=== PATIENT | female | born 1975 | race Caucasian/White ===

== ENCOUNTER 2023-05-04 20:05 | Emergency (ER) | payer MEDICAID, SELFPAY ==
[2023-05-04] VITALS (9 sets, daily range): BP systolic 86–164; BP diastolic 41–83; PULSE 80–130; RESP 14–25; TEMP 37.4; O2SAT 94–97; BMI 33.3
--- NOTE | ~2023-05-04 | CT_ITS ---
EXAMINATION: CT HEAD WITHOUT CONTRAST CLINICAL INFORMATION: Altered mental status. COMPARISON: None available. TECHNIQUE: Contiguous axial imaging was performed from the skull base to vertex without intravenous administration of contrast. This CT examination was performed using dose optimization techniques as appropriate, variously including the following: *Automated exposure control *Adjustment of mA and/or kV according to patient size (this includes techniques or standardized protocols for targeted exams where dose is matched to indication/reason for exam; i.e. extremities or head) *Use of iterative reconstruction technique DLP: 648.5 mGy-cm FINDINGS: The lateral, third and fourth ventricles are normally outlined. The cortical sulci and basal cisterns are normally outlined as well. There is no acute territorial defect, hemorrhage or midline shift. The extra-axial spaces are unremarkable. Calvarium: Intact. Maxillofacial sinuses and mastoids: Clear as visualized. CT/CT head/brain wo IV con IMPRESSION: No acute intracranial pathology.
--- NOTE | ~2023-05-04 | CT_ITS ---
EXAMINATION: CT ABDOMEN AND PELVIS WITHOUT CONTRAST CLINICAL INFORMATION: Abdominal pain. COMPARISON: None available. TECHNIQUE: Multidetector volumetric imaging was performed from the superior aspect of the liver through the pubic symphysis. Sagittal and coronal reformatted images were obtained on the technologist's workstation. This CT examination was performed using dose optimization techniques as appropriate, variously including the following: *Automated exposure control *Adjustment of mA and/or kV according to patient size (this includes techniques or standardized protocols for targeted exams where dose is matched to indication/reason for exam; i.e. extremities or head) *Use of iterative reconstruction technique DLP: 897.74 mGy-cm FINDINGS: LUNG BASES: The visualized lung bases are unremarkable. LIVER, GALLBLADDER, AND BILIARY TREE: The liver is normal in size, shape, and attenuation. No focal hepatic lesion or biliary ductal dilatation is present. The gallbladder is unremarkable with no evidence of radiopaque gallstones, gallbladder wall thickening, or obvious pericholecystic inflammatory changes. PANCREAS: Unremarkable. SPLEEN: Unremarkable. ADRENAL GLANDS: Unremarkable. KIDNEYS AND URETERS: The kidneys are normal in size, shape, and attenuation. No hydronephrosis, hydroureter, or calculi seen. No perinephric stranding. BLADDER: Unremarkable. GASTROINTESTINAL TRACT: There is retained stool throughout the colon. The appendix is not seen as a separate structure. ABDOMINAL WALL: No significant hernia is appreciated. LYMPH NODES: Normal. VASCULAR: Unremarkable. PELVIC VISCERA: Unremarkable. OSSEOUS STRUCTURES: There is diffuse pena-[id number]-[id number] thoracolumbar disc degenerative change with mild curvature of the lumbar spine convex to the left. There is grade 1 anterolisthesis L4 over L5. There is also diffuse [id number] thoracolumbar facet degenerative change CT/CT abdomen pelvis wo IV con IMPRESSION: Retained stool throughout the colon. The appendix is not seen. Diffuse mild to moderate thoracolumbar disc and facet degenerative change with mild curvature of the lumbar spine convex to the left and grade 1 anterolisthesis L4 over L5. No other significant abnormality seen. Fleischner guidelines were followed.
--- NOTE | ~2023-05-04 | XR_ITS ---
EXAMINATION: PORTABLE CHEST 1 VIEW CLINICAL INFORMATION: aspiration. COMPARISON: No recent pertinent prior studies are available for comparison. TECHNIQUE: Portable frontal view of the chest was obtained. FINDINGS: Patient is rotated to the right. Lungs are hypoexpanded. Minimal blunting of the right costophrenic angle could represent tiny effusion difficult to define with this rotation. No superimposed focal infiltrate, edema, or pneumothorax. Cardiac and mediastinal silhouettes within normal limits for size. No acute bony abnormality. Degenerative changes in the spine and shoulders. Cervical spine hardware noted. XR/XR chest 1V IMPRESSION: Rotated. Hypoexpanded with chronic appearing changes but no acute process seen otherwise.
[2023-05-04] MEDS: LORazepam 2 MG/ML VIAL IM (20:17)
[2023-05-04] MEDS: OLANZapine 10 MG VIAL 5 MG IM (20:17)
[2023-05-04] MEDS: diphenhydrAMINE HCL 50 MG/ML VIAL IM (20:17)
--- NOTE | 2023-05-04 20:36 | PC.NURSE ---
pt biba from home. per ems pt sister stating pt was having mental breakdown and needed hospitalization PD at scene and noted pt to have bottle in wine in hand. pt uncooperative and not answering questions per ems. upon arrival to ED, pt screaming and violent, pt refusing vitals. provider at bedside, pt reports taking 4 gabapentin. pt attempting to hit head against stretcher. security at bedside. Pt given IM medications at 2017, per provider order.
--- NOTE | 2023-05-04 21:05 | ECG_ITS ---
Test Reason : GENERAL MEDICAL Blood Pressure : / mmHG Vent. Rate : 088 BPM Atrial Rate : 088 BPM P-R Int : 152 ms QRS Dur : 076 ms QT Int : 398 ms P-R-T Axes : 062 056 048 degrees QTc Int : 481 ms Normal sinus rhythm Possible Left atrial enlargement Septal infarct , age undetermined Abnormal ECG No previous ECGs available Referred By: Aleta Barrera Electronically Signed By:SUREKHA BORJA
--- NOTE | 2023-05-04 21:05 | ED.PSYCH ---
HPI - Psych General Chief Complaint: Behavioral Concerns Stated Complaint: CRISIS UNCOOPERATIVE Time Seen by Provider: 05/04/23 20:59 Source: patient Mode of arrival: EMS Limitations: other (uncooperative) History of Present Illness HPI Narrative: 48 yo female from home who is intoxicated and will not answer my questions right now but seems to have had issue at her house and sister called EMS. she was agitated on arrival and received IM medications by previous provider. On my exam she is on the monitor but very sleepy and I cannot interview her appropriately. MD complaint: anxiety, alcohol abuse and other Onset (ago): unknown Duration: other History of same: Yes Relieving factors: none Exacerbating factors: none Context: other Associated psychiatric symptoms: other Associated symptoms: denies other symptoms Treatments prior to arrival: chemical restraints Related Data Allergies Allergy/AdvReac Type Severity Reaction Status Date / Time meperidine [From DEMEROL] Allergy Unknown HYPOTENSION Unverified 02/16/20 18:41 - PASSED OUT oxycodone [From OXYCONTIN] Allergy Unknown OUT OF Unverified 02/16/20 18:41 BODY EXPERIENCE - NEVER WANTS TO TAKE AGAIN penicillin V Allergy Unknown anaphylaxis Verified 01/19/14 00:00 Penicillins [PENICILLINS] Allergy Unknown ANAPHYLAXIS Unverified 02/16/20 18:41 Review of Systems Review of Systems: ROS unable to be obtained due to ETOH and medications PMFSH Past Medical History Source: unable to obtain (due to ETOH use and chemical restraints) Social History Social History (Updated 05/04/23 @ 21:38 by Aleta Barrera DO) Patient Tobacco Use Status: Tobacco use Unknown Advance Directives: No Advance Directives Information Provided: No Physical Exam Vital Signs: Vital Signs: Last Vital Signs Temp 99.4 F 05/04/23 23:41 Pulse 80 05/04/23 23:41 Resp 14 05/04/23 23:41 BP 108/53 L 05/04/23 21:51 Pulse Ox 97 05/04/23 23:41 O2 Del Method Room Air 05/04/23 23:41 BMI result Body Mass Index 33.3 Appearance: Somnolent responds to tactile stimuli. will not answer questions, rolls over. No acute distress. Eyes: Pupils equal, round and reactive to light. ENT: Pharynx normal. Atraumatic Neck: Normal inspection. Neck supple. CVS: Normal heart rate and rhythm. Pulses normal. Respiratory: No respiratory distress. Breath sounds normal. Abdomen: Soft and nontender. Skin: Skin warm and dry. Normal skin color. Normal skin turgor. Extremities: No lower extremity edema. No calf ttp Neuro: withdraws from tactile stimuli No motor deficit. No sensory deficit. Course Course Course Narrative: woke up at one time then couldn't urinate and had to straight cath Physician observation started at 433am Patient placed in physician observation because the patient needed more time for the CARE team to assess the need for psych admission. At the time observation was started the patient's vitals were stable, patient is somnolent and intermittently agitated, Neuro: nonfocal, CV RRR, Lungs clear Reevaluation(s) Reevaluation #1: WBC count could be acute phase reactant I have no source in abdomen, lungs or urine right now. she has been afebrile, could be post injection as well. Medications Administered Discontinued Medications Generic Name Dose Route Start Last Admin Trade Name Freq PRN Reason Stop Dose Admin Diphenhydramine HCl 50 mg 05/04/23 20:13 05/04/23 20:17 Diphenhydramine Hcl 50 Mg/Ml Vial IM 05/04/23 20:14 50 mg ONCE ONE Administration Lorazepam 2 mg 05/04/23 20:13 05/04/23 20:17 Lorazepam 2 Mg/Ml Vial IM 05/04/23 20:14 2 mg ONCE ONE Administration Olanzapine 5 mg 05/04/23 20:13 05/04/23 20:17 Olanzapine 10 Mg Vial IM 05/04/23 20:14 5 mg ONCE ONE Administration Medical Decision Making Medical Decision Making [facility] Narrative: 48 yo female with PMH of ETOH use and came in agitated needing chemical restraints at this time will reassess when more awake - will order labs and CARE team consult in AM. I cannot interview the patient as she was chemically restrained before I saw her Differential Diagnosis Differential Diagnoses: The differential diagnosis associated with the presentation includes substance abuse vs mental health issue Admission/Observation Consideration of admission/observation: Escalation of care including admission/observation considered observe until more appropriate CPK mildly elevated Consult Healthcare Provider Management of the patient was discussed with: Behavioral Health Provider Lab Data [facility] Lab Attestation statement: I reviewed the patient's lab results. 05/04/23 21:59 05/04/23 21:59 Labs: Lab Results 05/04/23 05/05/23 Range/Units 21:59 00:57 WBC 17.2 H (4.8-10.8) X10*3/uL RBC 3.96 L (4.20-5.50) X10*6/uL Hgb 11.6 L (12.0-16.0) g/dl Hct 36.0 L (37.0-47.0) % MCV 90.9 (80.0-98.0) fL MCH 29.3 (27.0-33.0) pg MCHC 32.2 (31.0-35.0) g/dl RDW 13.0 (11.0-16.0) % Plt Count 376 (160-400) X10*3/uL MPV 9.3 L (9.4-12.3) fL Immature Gran % (Auto) 0.3 (0.0-0.4) % Neut % (Auto) 78.3 H (45-73) % Lymph % (Auto) 13.9 L (20-40) % [place] % (Auto) 6.5 (2-11) % Eos % (Auto) 0.4 (0-4) % Baso % (Auto) 0.6 (0-2) % Lymph # (Auto) 2.4 (1.2-4.9) X10*3/uL [place] # (Auto) 1.1 (0.1-1.2) X10*3/uL Eos # (Auto) 0.1 (0.0-0.4) X10*3/uL Baso # (Auto) 0.1 (0.0-0.2) X10*3/uL Abs Immat Gran (auto) 0.05 H (0.00-0.03) X10*3/uL Absolute Neuts (auto) 13.5 H (2.0-8.3) x10*3/uL Absolute Nucleated RBC 0.000 (0.0-0.012) X10*3/uL Nucleated RBC % (auto) 0.0 (0.0-0.2) /100WBC Sodium 145 (135-145) mmol/L Potassium 4.0 (3.3-5.1) mmol/L Chloride 109 H (96-108) mmol/L Carbon Dioxide 20 L (22-29) mmol/L Anion Gap 20 (12-20) BUN 16 (9-16) mg/dL Creatinine 0.92 (0.5-1.4) mg/dL Estim Creat Clear Calc 81.3 Estimated GFR > 60 Random Glucose 69 (60-115) mg/dL Calcium 9.3 (8.4-10.2) mg/dL Magnesium 2.1 (1.6-2.6) mg/dL Total Bilirubin 0.4 (0.0-1.0) mg/dL Direct Bilirubin 0.2 (0.0-0.5) mg/dL AST 32 H (5-31) U/L ALT 20 (0-31) U/L Alkaline Phosphatase 61 (39-117) U/L Total Creatine Kinase 611 H (26-140) U/L Total Protein 6.2 L (6.5-8.0) g/dL Albumin 3.9 (3.5-5.0) g/dL Urine Color Yellow Urine Appearance Clear Urine pH 6.0 (5.0-9.0) Ur Specific [place] 1.020 (1.005-1.025) Urine Protein Negative (Neg-Trace) mg/dL Urine Glucose (UA) Negative (Negative) mg/dL Urine Ketones 15 (Negative) mg/dL Urine Blood Negative (Negative) Urine Nitrite Negative (Negative) Ur Leukocyte Esterase Small (1+) H (Negative) Urine RBC 0-2 (0-2) /HPF Urine WBC 0-5 (0-5) /HPF Ur Squamous Epith Cells 3-5 (0-2) /HPF Urine Bacteria 1+ (None Seen) Hyaline Casts 0-2 (0-2) /LPF Urine Opiates Screen Not Detected (Not Detect) Urine Fentanyl Screen Not Detected (Not Detect) Ur Barbiturates Screen Not Detected (Not Detect) Ur Phencyclidine Scrn Not Detected (Not Detect) Ur Amphetamines Screen POSITIVE H (Not Detect) U Benzodiazepines Scrn Not Detected (Not Detect) Urine Cocaine Screen Not Detected (Not Detect) U Marijuana (THC) Screen Not Detected (Not Detect) Ethyl Alcohol 24 mg/dL COVID-19 (MERY) Negative (Negative) COVID-19 Clin Com See Note Independent Interpretation I performed an independent interpretation of an: EKG, Plain X-Ray and CT Scan (no ICH, moderate constipation) Interpretation: Rate: 88 Rhythm: NSR [place]: normal Normal P waves. Normal [place]. Normal QRS complex. ST T wave : inverted T waves V1-V2, no NADIR qTC: normal prior studies: no priors The study has been interpreted contemporaneously by me. . Radiology Impression Discussion of test interpretation with radiology: I have reviewed the radiologist's reading. Independent Historian Clinical information obtained from an independent historian. History obtained from or confirmed by: Other Discharge Plan Discharge Clinical Impression: Agitation Constipation Qualifiers: Constipation type: unspecified constipation type Qualified Code(s): K59.00 - Constipation, unspecified Patient Disposition: Still a Patient
--- NOTE | 2023-05-04 21:17 | PC.NURSE ---
one our of chemical restraints complete, pt vss. pt sleeping, respirations even and unlabored. pt cooperative at this time. provider aware.
[2023-05-04 22:03] LABS: MANUAL DIFF FLAG NO
[2023-05-04 22:04] LABS: Basophils Absolute Auto 0.1 X10*3/uL (0.0-0.2); Basophils Percent Auto 0.6 % (0-2); Eosinophils Absolute Auto 0.1 X10*3/uL (0.0-0.4); Eosinophils Percent Auto 0.4 % (0-4); Hemoglobin 11.6 g/dl (12.0-16.0); Imm Gran Abs Auto 0.05 X10*3/uL (0.00-0.03); Imm Gran Pct Auto 0.3 % (0.0-0.4); Lymphocytes Absolute Auto 2.4 X10*3/uL (1.2-4.9); Lymphocytes Percent Auto 13.9 % (20-40); Mean Corpuscular HGB Conc 32.2 g/dl (31.0-35.0); Mean Corpuscular Hemoglobin 29.3 pg (27.0-33.0); Mean Corpuscular Volume 90.9 fL (80.0-98.0); Mean Platelet Volume 9.3 fL (9.4-12.3); Monocytes Absolute Auto 1.1 X10*3/uL (0.1-1.2); Monocytes Percent Auto 6.5 % (2-11); Neutrophils Absolute Auto 13.5 x10*3/uL (2.0-8.3); Neutrophils Percent Auto 78.3 % (45-73); Platelet Count 376 X10*3/uL (160-400); Red Blood Count 3.96 X10*6/uL (4.20-5.50); White Blood Count 17.2 X10*3/uL (4.8-10.8)
[2023-05-04 22:23] LABS: Alanine Aminotransferase 20 U/L (0-31); Albumin Level 3.9 g/dL (3.5-5.0); Alkaline Phosphatase 61 U/L (39-117); Anion Gap 20 (12-20); Aspartate Amino Transferase 32 U/L (5-31); Bilirubin Direct 0.2 mg/dL (0.0-0.5); Bilirubin Total 0.4 mg/dL (0.0-1.0); Blood Urea Nitrogen 16 mg/dL (9-16); Calcium 9.3 mg/dL (8.4-10.2); Carbon Dioxide 20 mmol/L (22-29); Chloride 109 mmol/L (96-108); Creatinine Clr Calc Pharmacy 81.3; Estimated Glomerular Filt Rate > 60; Ethanol 24 mg/dL; Glucose Random 69 mg/dL (60-115); Magnesium 2.1 mg/dL (1.6-2.6); Sodium 145 mmol/L (135-145); Total Protein 6.2 g/dL (6.5-8.0)
[2023-05-04 22:26] LABS: COVID-19 Test Negative (Negative); IDNOW Serial# 08D9AD1C
--- NOTE | 2023-05-04 23:00 | PC.NURSE ---
pt changed over to green attire at this time, xray at bedside. pt belongings placed in decon.
--- NOTE | 2023-05-05 00:26 | PC.NURSE ---
pt resting in stretcher, respirations even and unlabored.
[2023-05-05 01:16] LABS: Appearance Urine Clear; Color Urine Yellow; Glucose Urine UA Negative (Negative); Leukocyte Esterase Urine Small (1+) (Negative); Nitrite Urine Negative (Negative); UMIC TRIGGER UACC YES; Urine Blood Negative (Negative); Urine Ketones 15 mg/dL (Negative); Urine Protein Negative (Neg-Trace)
[2023-05-05 01:21] LABS: Bacteria Urine 1+ (None Seen); Hyaline Casts Urine 0-2 /LPF (0-2); RBC Urine 0-2 /HPF (0-2); UACC Culture Trigger YES; WBC Urine 0-5 /HPF (0-5)
--- NOTE | 2023-05-05 01:35 | PC.NURSE ---
pt awake and alert at this time. pt reports no thoughts of SI/HI. pt reports taking drugs but in unsure what she took. pt denies use of alcohol. pt reports increased urge to urinate at this time. pt ambulated with steady gait to use bathroom.
[2023-05-05 01:56] LABS: Amphetamine Screen Urine POSITIVE (Not Detect); Barbiturates, Urine Not Detected (Not Detect); Benzodiazepines Screen Urine Not Detected (Not Detect); Cannabinoid Screen Urine Not Detected (Not Detect); Cocaine Screen Urine Not Detected (Not Detect); Fentanyl, urine Not Detected (Not Detect); Opiate Screen Urine Not Detected (Not Detect); Phencyclidine Screen Urine Not Detected (Not Detect)
--- NOTE | 2023-05-05 02:23 | PC.NURSE ---
pt straight cath per provider order. pt tolerated well. 500ml of yellow cloudy urine obtained. pt sleeping and denies urgency at this time.
--- NOTE | 2023-05-05 02:24 | PC.NURSE ---
upon straight cathing pt, this RN noted pt to have bruising in multiple stages to the inside of her left thigh and to the right thigh. pt unable to state where the bruising originated.
[2023-05-05 04:53] VITALS: PULSE 84; RESP 17; O2SAT 98
--- NOTE | 2023-05-05 05:49 | PC.NURSE ---
pt alert at this time, pt states she knows she is at the hospital but is unable to state what hospital she is at. pt requesting food and drinks. pt sitting up and eating jello at this time.
--- NOTE | 2023-05-05 07:00 | PC.NURSE ---
pt sitting up and set up for breakfast at this time.
--- NOTE | 2023-05-05 09:45 | PC.NURSE ---
pt currently speaking w/ CARE team.
--- NOTE | 2023-05-05 10:38 | PC.NURSE ---
this RN called CARE team to see what plan for pt was at this time. pt now awaiting psychiatric consult.
--- NOTE | 2023-05-05 10:49 | PC.NURSE ---
pt becoming increasingly agitated after speaking w/ CARE team. pt is unhappy that she is not able to obtain belongings from [facility]. this RN stated that she is awaiting psychiatric consult at this time and CARE team is also attempting to obtain information from pt's sister. pt states that we are not able to legally keep her here without reason and that she denies SI/HI. pt verbalizing that she is going to walk out of facility. this RN and [facility] bedside speaking w/ pt in attempts to calm her down.
--- NOTE | 2023-05-05 11:00 | PC.NURSE ---
loc portillo called wes from CARE team - aware of situation at this time.
--- NOTE | 2023-05-05 11:25 | PC.NURSE ---
pt transferring to pod at this time.
[2023-05-05] MEDS: LORazepam 1 MG TABLET PO (11:49)
[2023-05-05] MEDS: Nicotine 21 MG PATCH.TD24 TRANSDERMA (11:49)
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
[2023-05-05 15:19] VITALS: RESP 16
--- NOTE | 2023-05-05 15:20 | PC.NURSE ---
Kedar was transferred to the POD from the main ED. Denies SI/HI/AVH and states I hope they don't think I'm staying here. Discharged with CES[facility] coates.
== END 2023-05-05 15:23 | disposition home or self-care (01) ==
PROVIDERS: Emergency Medicine; Emergency Provider Emergency Medicine Emergency Medical Services
DX: F32.9 Major depressive disorder, single episode, unspecified (principal); F43.10 Post-traumatic stress disorder, unspecified; K59.00 Constipation, unspecified; F41.1 Generalized anxiety disorder; F43.0 Acute stress reaction; R94.31 Abnormal electrocardiogram [ECG] [EKG]; F10.10 Alcohol abuse, uncomplicated; Y90.1 Blood alcohol level of 20-39 mg/100 ml; Z11.52 Encounter for screening for COVID-19; Z20.822 Contact with and (suspected) exposure to COVID-19; Z79.899 Other long term (current) drug therapy
CPT/HCPCS: 36415; 70450; 71045; 74176; 80048; 80076; 80307; 81001; 82550; 83735; 85025; 87086; 87635; 93005; 96372; 99285; J1200; J2060; J2359; S9485

== ENCOUNTER → 2023-05-04 20:49 | Outpatient (BNV) | payer OTHER, SELFPAY | PROVIDERS: Emergency Provider Emergency Medicine Emergency Medical Services; Visit Provider Psychiatry & Neurology Psychiatry | DX: F43.10 Post-traumatic stress disorder, unspecified (principal); F32.9 Major depressive disorder, single episode, unspecified; F10.90 Alcohol use, unspecified, uncomplicated | CPT/HCPCS: 99283 ==

== ENCOUNTER → 2023-05-04 21:05 | Outpatient (BNV) | payer MEDICAID, SELFPAY | PROVIDERS: Emergency Provider Emergency Medicine Emergency Medical Services; Visit Provider Internal Medicine | DX: R94.31 Abnormal electrocardiogram [ECG] [EKG] (principal) | CPT/HCPCS: 93010 ==

== ENCOUNTER 2023-05-05 17:20 | Emergency (ER) | payer MEDICAID, SELFPAY ==
[2023-05-05 17:23] VITALS: BP 125/75; PULSE 76; RESP 16; TEMP 36.9; O2SAT 98; BMI 29.2
--- NOTE | 2023-05-05 17:27 | ED.PSYCH ---
HPI - Psych General Chief Complaint: Psychiatric Symptoms Stated Complaint: CRISIS Time Seen by Provider: 05/05/23 21:55 Source: patient and old records reviewed Mode of arrival: ambulatory Limitations: no limitations History of Present Illness HPI Narrative: 48 yo female with PMH of PTSD, anxiety, depression just seen and cleared today - was offered a bed but after being seen wanted to leave. Was evaluated by psychiatry who felt her presentation was triggered by ETOH. She tells me she has nowhere to go as her sister kicked her out and now she has SI and will overdose on heroin as a plan. She feels she is in ETOH withdrawal and has a remote hx of withdrawal seizures. MD complaint: suicidal ideation and feels depressed Onset (ago): day(s) (1) Duration: constant History of same: Yes Relieving factors: none Exacerbating factors: drug use Context: recent drug abuse and significant life stressor Associated psychiatric symptoms: depression and suicidal ideation Associated symptoms: denies other symptoms Treatments prior to arrival: none If self harm: admits thoughts of self harm and has plan Related Data Home Medications Medication Instructions Recorded Confirmed baclofen 10 mg tablet 10 mg PO TID PRN Pain 05/05/23 05/06/23 gabapentin 300 mg capsule 300 mg PO TID 05/05/23 05/06/23 lisdexamfetamine 30 mg capsule 30 mg PO DAILY 05/05/23 05/06/23 (Vyvanse) lisdexamfetamine 40 mg capsule 40 mg PO QAM 05/05/23 05/06/23 (Vyvanse) Allergies Allergy/AdvReac Type Severity Reaction Status Date / Time meperidine [From DEMEROL] Allergy Unknown HYPOTENSION Verified 05/05/23 11:18 - PASSED OUT oxycodone [From OXYCONTIN] Allergy Unknown OUT OF Verified 05/05/23 11:18 BODY EXPERIENCE - NEVER WANTS TO TAKE AGAIN penicillin V Allergy Unknown anaphylaxis Verified 05/05/23 11:18 Penicillins [PENICILLINS] Allergy Unknown ANAPHYLAXIS Verified 05/05/23 11:18 Review of Systems Review of Systems: Constitutional : No Fever, No Chills ENT/Mouth : No Ear Pain, No Nasal Congestion, No sore throat Eyes: No Eye Pain, No Swelling, No Redness Cardiovascular : No Chest Pain, No SOB Respiratory : No Cough, No Sputum, No Dyspnea Gastrointestinal : No Nausea, No Vomiting, No Diarrhea, No Hematochezia, No Melena Genitourinary : No Dysuria, No Urinary Frequency, No Hematuria Musculoskeletal : No Myalgias Skin : No Skin Lesions, No rash Neuro : No Weakness, No Numbness, No Paresthesias, No Dizziness, No Headache Psych : positive Anxiety, positive Depression, positive SI no HI Heme/Lymph: No Lymphadenopathy Endocrine : No Polyuria, No Polydipsia All other systems reviewed and are negative PMFSH Past Medical History Source: old records reviewed Medical History Alcohol use disorder MDD (major depressive disorder) PTSD (post-traumatic stress disorder) Social History Social History (Updated 05/05/23 @ 22:03 by Aleta Barrera DO) Alcohol intake: current Alcohol intake frequency: holidays/special occasions only Patient Tobacco Use Status: Tobacco use Unknown Smoked in Last 30 Days: Yes Use of substances other than those prescribed or required for medical reasons: No Advance Directives: No Advance Directives Information Provided: No Patient : No Physical Exam Vital Signs: Vital Signs: Last Vital Signs Temp 98.5 F 05/05/23 17:23 Pulse 88 05/06/23 02:00 Resp 16 05/06/23 02:00 BP 141/93 H 05/06/23 02:00 Pulse Ox 95 05/06/23 02:00 O2 Del Method Room Air 05/06/23 02:00 BMI result Body Mass Index 29.2 Appearance: Alert. Oriented X3. No acute distress. Eyes: Pupils equal, round and reactive to light. ENT: Pharynx normal. Neck: Normal inspection. Neck supple. CVS: Normal heart rate and rhythm. Pulses normal. Respiratory: No respiratory distress. Breath sounds normal. Abdomen: Soft and nontender. Skin: Skin warm and dry. Normal skin color. Normal skin turgor. Extremities: No lower extremity edema. No calf ttp Neuro: Oriented X 3. No motor deficit. No sensory deficit. CN2-12 intact, tremors intact Course Course Course Narrative: This is a rapid medical exam: Additional HPI, ROS, PE not included below will be deferred to primary provider. Patient is a 48-year-old female presenting to the ED with complaint of anxiety. 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 States family convinced her to return as she is still experiencing anxiety. Denies suicidal or homicidal ideation. Plan: labs, UA Reevaluation(s) Reevaluation #1: Physician observation started at 1005pm. Patient placed in physician observation because the patient needed more time for CARE team to assess the need for psych admission. At the time observation was started the patient's vitals were stable, patient is alert and oriented but slightly agitated, Neuro: nonfocal, CV RRR, Lungs clear Reevaluation #2: Physician observation continued I assumed care of this patient from my colleague, Dr. Aleta Barrera 07:00. No reported incidents on the patient by the overnight staff. Patient's medications were reconciled ordered her outpatient regimen. Patient will remain in the emergency department Behavioral Health Unit until disposition can be determined or until patient's symptoms improve over time. Time: 07:03 Reevaluation #3: End physician observation Patient was re-evaluated this morning by the care team and at this time, was felt that the patient can be safely discharged home. Patient will be referred to [facility]. Patient was discharged home. Time: 11:49 Medications Administered Generic Name Dose Route Start Last Admin Trade Name Freq PRN Reason Stop Dose Admin Gabapentin 300 mg 05/06/23 09:00 05/06/23 10:56 Gabapentin 300 Mg Capsule PO 300 mg TID ESTEBAN Administration Lorazepam 2 mg 05/05/23 22:00 05/06/23 02:41 Lorazepam 1 Mg Tablet PO 2 mg Q3H PRN Administration Alcohol Withdrawal Discontinued Medications Generic Name Dose Route Start Last Admin Trade Name Freq PRN Reason Stop Dose Admin Thiamine HCl 100 mg 05/05/23 22:00 05/05/23 22:45 Thiamine Hcl 100 Mg Tablet PO 05/05/23 22:01 100 mg ONCE ONE Administration Medical Decision Making Medical Decision Making MDM Narrative: 48 yo female with PMH of PTSD, anxiety, depression just seen and cleared today here with recurrent anxiety, mild ETOh withdrawal, SI and plan to overdose at this time will need CARE team consult, PRN ativan. Differential Diagnosis Differential Diagnoses: The differential diagnosis associated with the presentation includes SI, ETOH abuse, social suport Admission/Observation Consideration of admission/observation: Escalation of care including admission/observation considered observe until CARE team has seen patient Consult Healthcare Provider Management of the patient was discussed with: Behavioral Health Provider Lab Data [facility] Lab Attestation statement: I reviewed the patient's lab results. 05/05/23 18:08 05/05/23 18:07 Labs: Lab Results 05/05/23 05/05/23 05/06/23 Range/Units 18:07 18:08 05:59 WBC 11.4 H (4.8-10.8) X10*3/uL RBC 4.19 L (4.20-5.50) X10*6/uL Hgb 12.5 (12.0-16.0) g/dl Hct 38.2 (37.0-47.0) % MCV 91.2 (80.0-98.0) fL MCH 29.8 (27.0-33.0) pg MCHC 32.7 (31.0-35.0) g/dl RDW 13.2 (11.0-16.0) % Plt Count 423 H (160-400) X10*3/uL MPV 9.7 (9.4-12.3) fL Immature Gran % (Auto) 0.3 (0.0-0.4) % Neut % (Auto) 62.9 (45-73) % Lymph % (Auto) 26.0 (20-40) % [place] % (Auto) 7.5 (2-11) % Eos % (Auto) 2.4 (0-4) % Baso % (Auto) 0.9 (0-2) % Lymph # (Auto) 3.0 (1.2-4.9) X10*3/uL [place] # (Auto) 0.9 (0.1-1.2) X10*3/uL Eos # (Auto) 0.3 (0.0-0.4) X10*3/uL Baso # (Auto) 0.1 (0.0-0.2) X10*3/uL Abs Immat Gran (auto) 0.03 (0.00-0.03) X10*3/uL Absolute Neuts (auto) 7.2 (2.0-8.3) x10*3/uL Absolute Nucleated RBC 0.000 (0.0-0.012) X10*3/uL Nucleated RBC % (auto) 0.0 (0.0-0.2) /100WBC Sodium 141 (135-145) mmol/L Potassium 4.0 (3.3-5.1) mmol/L Chloride 108 (96-108) mmol/L Carbon Dioxide 25 (22-29) mmol/L Anion Gap 12 (12-20) BUN 22 H (9-16) mg/dL Creatinine 0.86 (0.5-1.4) mg/dL Estim Creat Clear Calc 75.8 Estimated GFR > 60 Random Glucose 76 (60-115) mg/dL Calcium 8.9 (8.4-10.2) mg/dL Total Bilirubin 0.4 (0.0-1.0) mg/dL AST 50 H (5-31) U/L ALT 25 (0-31) U/L Alkaline Phosphatase 67 (39-117) U/L Total Protein 6.5 (6.5-8.0) g/dL Albumin 4.0 (3.5-5.0) g/dL Beta HCG, Quant < 2 mIU/mL Urine Color Yellow Urine Appearance Clear Urine pH 6.0 (5.0-9.0) Ur Specific [place] 1.015 (1.005-1.025) Urine Protein Negative (Neg-Trace) mg/dL Urine Glucose (UA) Negative (Negative) mg/dL Urine Ketones Trace (Negative) mg/dL Urine Blood Negative (Negative) Urine Nitrite Negative (Negative) Ur Leukocyte Esterase Negative (Negative) Salicylates < 5.0 L (15-30) mg/dL Urine Opiates Screen Not Detected (Not Detect) Urine Fentanyl Screen Not Detected (Not Detect) Acetaminophen < 3 (<30) mcg/mL Ur Barbiturates Screen Not Detected (Not Detect) Ur Phencyclidine Scrn Not Detected (Not Detect) Ur Amphetamines Screen POSITIVE H (Not Detect) U Benzodiazepines Scrn Not Detected (Not Detect) Urine Cocaine Screen Not Detected (Not Detect) U Marijuana (THC) Screen Not Detected (Not Detect) Ethyl Alcohol < 10 mg/dL COVID-19 (MERY) Negative (Negative) COVID-19 Clin Com See Note External Record Review External record reviewed: Inpatient record Social Determinants Patient?s care significantly limited by Social Determinants of Health including: Alcoholism and drug addiction in family and Problems related to primary support group Discharge Plan Discharge Clinical Impression: Suicidal ideation, Alcohol use disorder Patient Disposition: Home, Self-Care Additional Instructions: Your evaluated by the care team. Please follow their instructions. Continue taking medications as prescribed by your providers. If you feel like you are going to harm yourself or harm anyone else, please return to the emergency department and we can help you. Follow-up with your doctor in 2 days. Please return to the emergency department if your symptoms get worse or if you develop any symptoms that are concerning to you. Prescriptions: No Action baclofen 10 mg tablet 10 mg PO TID PRN (Reason: Pain) gabapentin 300 mg capsule 300 mg PO TID lisdexamfetamine [Vyvanse] 30 mg capsule 30 mg PO DAILY Rx Instructions: Total 70mg Daily lisdexamfetamine [Vyvanse] 40 mg capsule 40 mg PO QAM Rx Instructions: Total AM dose 70mg Interventions: [place]-Suicide Risk Severity Scale Last Done: 05/06/23 01:31
[2023-05-05 18:22] LABS: MANUAL DIFF FLAG NO
[2023-05-05 18:36] LABS: COVID-19 Test Negative (Negative); IDNOW Serial# 08D9AD1C
[2023-05-05 18:40] LABS: Acetaminophen LAB < 3 mcg/mL (<30); Salicylate < 5.0 mg/dL (15-30)
[2023-05-05 18:47] LABS: Alanine Aminotransferase 25 U/L (0-31); Alkaline Phosphatase 67 U/L (39-117); Anion Gap 12 (12-20); Aspartate Amino Transferase 50 U/L (5-31); Bilirubin Total 0.4 mg/dL (0.0-1.0); Blood Urea Nitrogen 22 mg/dL (9-16); Calcium 8.9 mg/dL (8.4-10.2); Carbon Dioxide 25 mmol/L (22-29); Chloride 108 mmol/L (96-108); Creatinine Clr Calc Pharmacy 75.8; Estimated Glomerular Filt Rate > 60; Ethanol < 10 mg/dL; Glucose Random 76 mg/dL (60-115); HCG Quantitative < 2 mIU/mL; Sodium 141 mmol/L (135-145); Total Protein 6.5 g/dL (6.5-8.0)
[2023-05-05 18:47] LABS: Basophils Absolute Auto 0.1 X10*3/uL (0.0-0.2); Basophils Percent Auto 0.9 % (0-2); Eosinophils Absolute Auto 0.3 X10*3/uL (0.0-0.4); Eosinophils Percent Auto 2.4 % (0-4); Hematocrit 38.2 % (37.0-47.0); Hemoglobin 12.5 g/dl (12.0-16.0); Imm Gran Abs Auto 0.03 X10*3/uL (0.00-0.03); Imm Gran Pct Auto 0.3 % (0.0-0.4); Mean Corpuscular HGB Conc 32.7 g/dl (31.0-35.0); Mean Corpuscular Hemoglobin 29.8 pg (27.0-33.0); Mean Corpuscular Volume 91.2 fL (80.0-98.0); Mean Platelet Volume 9.7 fL (9.4-12.3); Monocytes Absolute Auto 0.9 X10*3/uL (0.1-1.2); Monocytes Percent Auto 7.5 % (2-11); Neutrophils Absolute Auto 7.2 x10*3/uL (2.0-8.3); Neutrophils Percent Auto 62.9 % (45-73); Platelet Count 423 X10*3/uL (160-400); Red Blood Count 4.19 X10*6/uL (4.20-5.50); Red Cell Distribution Width 13.2 % (11.0-16.0); White Blood Count 11.4 X10*3/uL (4.8-10.8)
[2023-05-05] MEDS: Thiamine HCL 100 MG TABLET PO (22:45)
[2023-05-05] MEDS: LORazepam 1 MG TABLET 2 MG PO (22:45)
--- NOTE | 2023-05-05 22:51 | PC.NURSE ---
Security placed Belongings in pod closet.
[2023-05-06 02:00] VITALS: BP 141/93; PULSE 88; RESP 16; O2SAT 95
[2023-05-06] MEDS: LORazepam 1 MG TABLET 2 MG PO (02:41)
--- NOTE | 2023-05-06 02:44 | PC.NURSE ---
Pt A&Ox3, reports bilateral chronic hand pain. Tearful, states feeling I cant cope with my emotions . Denies SI/HI/AH/VH, states she has no where to go and feels safe here. Pt medicated per JUL. Pt ambulated to BR with slow gait and staff stand by assist.
--- NOTE | 2023-05-06 05:41 | PC.NURSE ---
Assumed care of pt. Pt ambulated to room under own power, steady gait. pt answering questions appropriately, calm and cooperative with staff. No acute distress at this time. urine sample obtained for testing on arrival.
[2023-05-06 06:12] LABS: Appearance Urine Clear; Color Urine Yellow; Glucose Urine UA Negative (Negative); Leukocyte Esterase Urine Negative (Negative); Nitrite Urine Negative (Negative); Specific Gravity - Urine 1.015 (1.005-1.025); Urine Blood Negative (Negative); Urine Ketones Trace mg/dL (Negative); Urine Protein Negative (Neg-Trace)
[2023-05-06 06:18] LABS: Amphetamine Screen Urine POSITIVE (Not Detect); Barbiturates, Urine Not Detected (Not Detect); Benzodiazepines Screen Urine Not Detected (Not Detect); Cannabinoid Screen Urine Not Detected (Not Detect); Cocaine Screen Urine Not Detected (Not Detect); Fentanyl, urine Not Detected (Not Detect); Opiate Screen Urine Not Detected (Not Detect); Phencyclidine Screen Urine Not Detected (Not Detect)
[2023-05-06] MEDS: Gabapentin 300 MG CAPSULE PO (10:56)
--- NOTE | 2023-05-07 09:38 | MHC.CARE ---
The RAD Team made a referral to [facility] for individual therapy. Follow up call will be made tomorrow to be sure the referral was received.
== END 2023-05-06 12:59 | disposition home or self-care (01) ==
PROVIDERS: Registered Nurse Emergency; Emergency Provider Emergency Medicine Emergency Medical Services
DX: F33.1 Major depressive disorder, recurrent, moderate (principal); R45.851 Suicidal ideations; F10.10 Alcohol abuse, uncomplicated; Y90.0 Blood alcohol level of less than 20 mg/100 ml; Z79.899 Other long term (current) drug therapy; Z11.52 Encounter for screening for COVID-19; Z20.822 Contact with and (suspected) exposure to COVID-19
CPT/HCPCS: 36415; 80053; 80143; 80179; 80307; 81003; 84702; 85025; 87635; 99285; S9485